=== PATIENT | male | born 1985 | race Caucasian/White ===

== ENCOUNTER 2020-09-26 13:42 | Inpatient (IN) | payer OTHER ==
[2020-09-26 17:29] VITALS: BMI 25.7
[2020-09-26] MEDS ORDERED: ACETAMINOPHEN 325 MG TABLET (FP) PO PRN ×2 (17:52)
[2020-09-26] MEDS ORDERED: methaDONE HCL 10 MG TABLET (FOR DETOX USE ONLY) PO ONE (17:52)
[2020-09-26] MEDS ORDERED: MAG HYDROX/AL HYDROX/SIMETH 30 ML UNIT-DOSE CUP PO PRN (17:52)
[2020-09-26] MEDS ORDERED: MENTHOL/PHENOL 1 EACH UD MM PRN (17:52)
[2020-09-26] MEDS ORDERED: IBUPROFEN 400 MG TABLET (FP) PO PRN (17:52)
[2020-09-26] MEDS ORDERED: MAGNESIUM CITRATE 300 ML BOTTLE PO PRN (17:52)
[2020-09-26] MEDS ORDERED: NICOTINE 10 MG CARTRIDGE (INHALER) IH PRN (17:52)
[2020-09-26] MEDS ORDERED: MAGNESIUM HYDROX 2400MG/30ML ORAL SUSPENSION 30 ML CUP PO PRN (17:52)
[2020-09-26] MEDS ORDERED: hydrOXYzine PAMOATE 25 MG CAPSULE (FP) PO PRN (17:52)
[2020-09-26] MEDS ORDERED: cloNIDine HCL 0.1 MG TABLET PO PRN (17:52)
[2020-09-26] MEDS ORDERED: ONDANSETRON *ODT* 4 MG TABLET ONE (18:17)
[2020-09-26] MEDS: ONDANSETRON *ODT* 4 MG TABLET SL PRN (18:18)
[2020-09-26] MEDS: NICOTINE 21 MG/24 HOURS TOPICAL PATCH TD SCH (19:42)
[2020-09-26] MEDS: MELATONIN 5 MG TABLETS PO SCH (22:29)
[2020-09-26] MEDS: METHOCARBAMOL 500 MG TABLET PO PRN (22:29)
[2020-09-26] MEDS: THIAMINE HCL 100 MG TABLET (FP) PO SCH (22:29)
[2020-09-27] MEDS: BISMUTH SUBSALICYLATE 524 MG/30 ML PO PRN ×2 (09:00→20:10)
[2020-09-27] MEDS: ONDANSETRON *ODT* 4 MG TABLET SL PRN ×2 (09:00→20:10)
[2020-09-27] MEDS ORDERED: methaDONE HCL 10 MG TABLET (FOR DETOX USE ONLY) ONE (09:28)
[2020-09-27] MEDS: clonazePAM 0.5 MG ODT TABLETS SL PRN ×2 (10:32→20:06)
[2020-09-27] MEDS: PRENATAL VITAMINS W/ FOLIC ACID TABLET (FP) PO SCH (10:35)
[2020-09-27] MEDS: NICOTINE 21 MG/24 HOURS TOPICAL PATCH TD SCH (10:35)
[2020-09-27 11:17] LABS: HEMATOCRIT 33.6 % (35.4-49); HEMOGLOBIN 11.1 GM/dL (11.7-16.9); MCH 28.6 pg (25.7-33.7); MCHC 32.9 g/dl (32.0-35.9); MEAN PLT VOLUME 8.8 fl (7.5-11.1); PLATELET COUNT 504 10^3/uL (134-434); RBC 3.86 M/mm3 (4.00-5.60); RDW 14.6 % (11.9-15.9); WHITE BLOOD COUNT 20.9 K/mm3 (4.0-10.0)
[2020-09-27 11:36] LABS: ALBUMIN 2.4 g/dl (3.4-5.0); BLOOD UREA NITROGEN 6.8 mg/dL (7-18)
[2020-09-27 11:37] LABS: CALCIUM 8.4 mg/dL (8.5-10.1)
[2020-09-27 11:39] LABS: CREATININE 0.6 mg/dL (0.55-1.3)
[2020-09-27 11:41] LABS: BILIRUBIN,TOTAL 1.2 mg/dL (0.2-1); TOT PROT 7.4 g/dl (6.4-8.2)
[2020-09-27] MEDS ORDERED: COVID-19 VAC,AD26(JANSSEN)/PF 0.5 ML IM ONE (12:00)
[2020-09-27] MEDS ORDERED: PNEUMOCOCCAL 23 VACCINE 0.5 ML VIAL IM ONE (12:00)
[2020-09-27 12:22] LABS: HIV INTERPRETATION NEGATIVE (NEGATIVE)
[2020-09-27] MEDS ORDERED: PNEUMOC 13-VAL CONJ-DIP CRM/PF 0.5 ML DISP.SYRIN IM ONE (18:35)
[2020-09-27] MEDS: METHOCARBAMOL 500 MG TABLET PO PRN (22:01)
[2020-09-27] MEDS: THIAMINE HCL 100 MG TABLET (FP) PO SCH (22:34)
[2020-09-27] MEDS: MELATONIN 5 MG TABLETS PO SCH (22:34)
[2020-09-28] MEDS ORDERED: POTASSIUM CHLORIDE TABS 20 MEQ TABLET.ER (FP) PO SCH (10:00)
[2020-09-28] MEDS ORDERED: methaDONE HCL 10 MG TABLET (FOR DETOX USE ONLY) PO ONE (10:00)
[2020-09-28] MEDS: NICOTINE 21 MG/24 HOURS TOPICAL PATCH TD SCH (11:03)
[2020-09-28] MEDS: PRENATAL VITAMINS W/ FOLIC ACID TABLET (FP) PO SCH (11:03)
[2020-09-28] MEDS: ONDANSETRON *ODT* 4 MG TABLET SL PRN (11:05)
[2020-09-28] MEDS: clonazePAM 0.5 MG ODT TABLETS SL PRN (13:23)
[2020-09-28 13:40] VITALS: BP 153/81; PULSE 116; TEMP 99.1
[2020-09-30] MEDS ORDERED: methaDONE HCL 10 MG TABLET (FOR DETOX USE ONLY) PO ONE (10:00)
== END 2020-09-28 23:37 | disposition short-term general hospital (02) | DRG 773 ==
LOC: YASAS 13:42 → Y6N 18:14
PROVIDERS: ADMIT Allergy & Immunology; ATTEND Allergy & Immunology
PROC: HZ2ZZZZ Detoxification Services for Substance Abuse Treatment (ICD-10-PCS; principal; 2020-09-26)
DX: F11.23 Opioid dependence with withdrawal (principal); F14.10 Cocaine abuse, uncomplicated; F17.210 Nicotine dependence, cigarettes, uncomplicated; F41.9 Anxiety disorder, unspecified; F43.10 Post-traumatic stress disorder, unspecified; D72.829 Elevated white blood cell count, unspecified; D64.9 Anemia, unspecified; E87.6 Hypokalemia; R05 Cough; Z87.01 Personal history of pneumonia (recurrent); Z87.81 Personal history of (healed) traumatic fracture; Z56.0 Unemployment, unspecified; Z59.0 Homelessness
CPT/HCPCS: 36415; 80053; 85027; 86780; 87389; 93005; 93010; C9803; J0735; Q0162; U0003; U0005

== ENCOUNTER 2020-09-28 16:03 | Inpatient (IN) | payer OTHER ==
[2020-09-28] MEDS ORDERED: SODIUM CHLORIDE 500 ML IV STA (17:16)
[2020-09-28 17:58] LABS: BASO % 0.6 % (0-2.0); EOS % 0.6 % (0-4.5); HEMATOCRIT 32.7 % (35.4-49); HEMOGLOBIN 10.6 GM/dL (11.7-16.9); LYMPH % 12.6 % (8-40); MCH 28.2 pg (25.7-33.7); MCHC 32.4 g/dl (32.0-35.9); MONO % 11.3 % (3.8-10.2); NEUT % 74.9 % (42.8-82.8); PLATELET COUNT 487 10^3/uL (134-434); RBC 3.75 M/mm3 (4.00-5.60)
[2020-09-28 18:04] LABS: INR 1.34 (0.83-1.09); PROTHROMBIN TIME (PATIENT) 16.3 SEC (9.7-13.0)
[2020-09-28 18:18] LABS: CALCIUM 8.6 mg/dL (8.5-10.1)
[2020-09-28 18:19] LABS: ALBUMIN 2.3 g/dl (3.4-5.0); BLOOD UREA NITROGEN 6.9 mg/dL (7-18); MAGNESIUM 2.5 mg/dL (1.8-2.4)
[2020-09-28 18:22] LABS: CREATININE 0.6 mg/dL (0.55-1.3)
[2020-09-28 18:23] LABS: TOT PROT 7.2 g/dl (6.4-8.2)
[2020-09-28] MEDS ORDERED: CEFTRIAXONE 1,000 MG in DEXTROSE 5%-WATER - 50 ML IVPB ONE (18:26)
[2020-09-28] MEDS ORDERED: CEFTRIAXONE 1 GM/50 ML BAG ONE (18:35)
[2020-09-28] MEDS ORDERED: AZITHROMYCIN IVPB 500 MG/250 ML BAG IVPB ONE (18:35)
[2020-09-28] MEDS: AZITHROMYCIN IVPB 500 MG/250 ML BAG IVPB SCH (19:30)
[2020-09-28] MEDS ORDERED: KETOROLAC TROMETHAMINE 15 MG/ML VIAL IVPUSH ONE (20:13)
[2020-09-28] MEDS ORDERED: FOLIC ACID INJECTION - 1 MG, THIAMINE HCL 100 MG, MULTIVIT INJECTION ADULT 10 ML in SOD... IVPB ONE (20:16)
[2020-09-28] MEDS ORDERED: KETOROLAC TROMETHAMINE 15 MG/ML VIAL ONE (20:19)
[2020-09-28] MEDS ORDERED: ONDANSETRON 4 MG/2 ML VIAL IVPUSH ONE (20:20)
[2020-09-28] MEDS ORDERED: cloNIDine HCL 0.1 MG TABLET PO PRN (21:47)
[2020-09-28] MEDS ORDERED: MELATONIN 5 MG TABLETS PO PRN (21:48)
[2020-09-28] MEDS ORDERED: clonazePAM 0.5 MG TABLET PO PRN (21:48)
[2020-09-28] MEDS ORDERED: IBUPROFEN 200 MG TABLET PO PRN (21:54)
[2020-09-29] MEDS ORDERED: KETOROLAC TROMETHAMINE 15 MG/ML VIAL IVPUSH ONE ×2 (02:15→03:48)
[2020-09-29] MEDS ORDERED: clonazePAM 0.5 MG TABLET PO ONE (03:47)
[2020-09-29 05:10] LABS: EPI CELLS >36 /uL (0-25.1); HYALINE CASTS 2 /uL (0-3.1); URINE APPEARANCE CLEAR; URINE BILIRUBIN 1+ (NEGATIVE); URINE COLOR ORANGE; URINE GLUCOSE (UA) NEGATIVE (NEGATIVE); URINE KETONE NEGATIVE (NEGATIVE); URINE LEUK ESTERASE TRACE (NEGATIVE); URINE NITRITE POSITIVE (NEGATIVE); URINE PROTEIN 1+ (NEGATIVE); URINE RBC 25 /uL (0-23.9); URINE WBC 42 /uL (0-25.8)
[2020-09-29] MEDS ORDERED: CEFTRIAXONE 1 GM in DEXTROSE 5%-WATER - 50 ML IVPB SCH (10:00)
[2020-09-29 10:33] LABS: MCHC 33.4 g/dl (32.0-35.9); MEAN PLT VOLUME 8.5 fl (7.5-11.1); PLATELET COUNT 508 10^3/uL (134-434); RDW 15.6 % (11.9-15.9); WHITE BLOOD COUNT 23.8 K/mm3 (4.0-10.0)
[2020-09-29 11:02] LABS: ALBUMIN 1.8 g/dl (3.4-5.0); BLOOD UREA NITROGEN 8.6 mg/dL (7-18); MAGNESIUM 2.2 mg/dL (1.8-2.4)
[2020-09-29 11:05] LABS: CREATININE 0.7 mg/dL (0.55-1.3); PHOSPHOROUS 1.4 mg/dL (2.5-4.9)
[2020-09-29 11:07] LABS: BILIRUBIN,TOTAL 1.6 mg/dL (0.2-1); TOT PROT 6.2 g/dl (6.4-8.2)
[2020-09-29 11:08] LABS: IRON SERUM 10 ug/dL (50-175); TOTAL IRON BINDING CAPACITY 137 ug/dL (250-450)
[2020-09-29] MEDS ORDERED: VANCOMYCIN 1 GM in D5W (PRE-DOCKED) 1,000 MG/250 ML IVPB SCH ×2 (11:30→12:30)
[2020-09-29 11:46] LABS: ANISOCYTOSIS 2+; MACROCYTOSIS 1+; PLATELET ESTIMATE INCREASED
[2020-09-29] MEDS: ENOXAPARIN NA (PORCINE) 40 MG/0.4 ML DISP.SYRIN SQ SCH (11:50)
[2020-09-29] MEDS: AZITHROMYCIN IVPB 500 MG/250 ML BAG IVPB SCH (11:51)
[2020-09-29] MEDS: FOLIC ACID 1 MG TABLET (FP) PO SCH (11:51)
[2020-09-29] MEDS: THIAMINE HCL 100 MG TABLET (FP) PO SCH ×2 (11:51→21:57)
[2020-09-29] MEDS ORDERED: cloNIDine HCL 0.1 MG TABLET PO PRN (12:20)
[2020-09-29] MEDS ORDERED: methaDONE HCL 10 MG TABLET ONE (12:51)
[2020-09-29] MEDS: LACTATED RINGERS SOLUTION 1,000 ML/1,000 ML INFUS.BAG IV SCH (13:00)
[2020-09-29] MEDS ORDERED: SODIUM CHLORIDE 500 ML IV ONE (14:30)
[2020-09-29] MEDS ORDERED: PIPERACILLIN/TAZOBACTAM 4.5 GM VIAL IVPB ONE (17:27)
[2020-09-29] MEDS ORDERED: DEXTROSE 5%-WATER 100 ML IVPB ONE (17:27)
[2020-09-29] MEDS: PIPERACILLIN/TAZOB 4.5 GM 4.5 GM in DEXTROSE 5%-WATER 100 ML IVPB SCH (17:35)
[2020-09-29] MEDS: clonazePAM 0.5 MG TABLET PO PRN ×2 (17:35→22:39)
[2020-09-29] MEDS ORDERED: PIPERACILLIN/TAZOB 4.5 GM 4.5 GM in DEXTROSE 5%-WATER 100 ML IVPB SCH (18:00)
[2020-09-29] MEDS ORDERED: SODIUM PHOSPHATE - 45 MM in SODIUM CHLORIDE 500 ML IVPB ONE (18:24)
[2020-09-29] MEDS: morphine SULFATE 4 MG/ML VIAL IVPUSH PRN ×2 (18:27→21:44)
[2020-09-29] MEDS: ACETAMINOPHEN 1000 MG/100 ML VIAL (NON FORMULARY) IVPB PRN (22:46)
[2020-09-30] MEDS ORDERED: PIPERACILLIN/TAZOBACTAM 4.5 GM VIAL IVPB ONE ×3 (01:13→17:29)
[2020-09-30] MEDS ORDERED: DEXTROSE 5%-WATER 100 ML IVPB ONE ×3 (01:13→17:29)
[2020-09-30] MEDS: PIPERACILLIN/TAZOB 4.5 GM 4.5 GM in DEXTROSE 5%-WATER 100 ML IVPB SCH ×3 (01:15→17:44)
[2020-09-30] MEDS: morphine SULFATE 4 MG/ML VIAL IVPUSH PRN ×5 (01:19→19:59)
[2020-09-30] MEDS: clonazePAM 0.5 MG TABLET PO PRN ×3 (04:58→21:48)
[2020-09-30] MEDS ORDERED: methaDONE HCL 10 MG TABLET PO ONE (06:00)
[2020-09-30] MEDS: FOLIC ACID 1 MG TABLET (FP) PO SCH (10:24)
[2020-09-30] MEDS: THIAMINE HCL 100 MG TABLET (FP) PO SCH ×2 (10:24→23:01)
[2020-09-30] MEDS: ENOXAPARIN NA (PORCINE) 40 MG/0.4 ML DISP.SYRIN SQ SCH (10:26)
[2020-09-30 10:29] LABS: HEMATOCRIT 28.2 % (35.4-49); HEMOGLOBIN 9.3 GM/dL (11.7-16.9); MCH 28.6 pg (25.7-33.7); MCHC 32.9 g/dl (32.0-35.9); MEAN CELL VOLUME 86.9 fl (80-96); MEAN PLT VOLUME 8.5 fl (7.5-11.1); PLATELET COUNT 412 10^3/uL (134-434); RBC 3.24 M/mm3 (4.00-5.60); RDW 15.6 % (11.9-15.9); WHITE BLOOD COUNT 21.3 K/mm3 (4.0-10.0)
[2020-09-30 10:58] LABS: MAGNESIUM 2.1 mg/dL (1.8-2.4)
[2020-09-30 10:59] LABS: ALBUMIN 1.8 g/dl (3.4-5.0); BLOOD UREA NITROGEN 9.3 mg/dL (7-18); CALCIUM 7.9 mg/dL (8.5-10.1)
[2020-09-30 11:02] LABS: BILIRUBIN,DIRECT 1.4 mg/dL (0.0-0.2); CREATININE 0.5 mg/dL (0.55-1.3); PHOSPHOROUS 5.3 mg/dL (2.5-4.9)
[2020-09-30 11:03] LABS: TOT PROT 6.2 g/dl (6.4-8.2)
[2020-09-30 11:04] LABS: BILIRUBIN,TOTAL 2.1 mg/dL (0.2-1)
[2020-09-30 11:12] LABS: ERYTHROCYTE SEDIMENTATION RATE 111 mm/hr (0-10)
[2020-09-30] MEDS ORDERED: ALTEPLASE 2 MG VIAL IX ONE (12:00)
[2020-09-30 13:25] VITALS: BMI 24.9
[2020-09-30] MEDS ORDERED: HYDROmorphone HCl 2 MG/ML VIAL IVPB ONE (13:25)
[2020-09-30] MEDS: VANCOMYCIN 1 GRAM (PRE-DOCKED) 1,000 MG/250 ML BAG IVPB SCH (14:02)
[2020-09-30] MEDS: LACTATED RINGERS SOLUTION 1,000 ML/1,000 ML INFUS.BAG IV SCH (15:08)
[2020-09-30] MEDS: AMINO ACIDS/PROTEIN HYDROLYS 30 ML LIQUID.PKT PO SCH (16:45)
[2020-09-30] MEDS: ACETAMINOPHEN 1000 MG/100 ML VIAL (NON FORMULARY) IVPB PRN (21:50)
[2020-10-01] MEDS: VANCOMYCIN 1 GRAM (PRE-DOCKED) 1,000 MG/250 ML BAG IVPB SCH ×2 (01:32→01:44)
[2020-10-01] MEDS: PIPERACILLIN/TAZOB 4.5 GM 4.5 GM in DEXTROSE 5%-WATER 100 ML IVPB SCH ×3 (01:45→19:07)
[2020-10-01] MEDS: clonazePAM 0.5 MG TABLET PO PRN ×2 (05:49→18:37)
[2020-10-01] MEDS: morphine SULFATE 4 MG/ML VIAL IVPUSH PRN ×2 (07:12→12:24)
[2020-10-01 09:23] LABS: BASO % 0.3 % (0-2.0); EOS % 0.3 % (0-4.5); HEMATOCRIT 27.1 % (35.4-49); HEMOGLOBIN 8.8 GM/dL (11.7-16.9); LYMPH % 9.2 % (8-40); MCH 28.2 pg (25.7-33.7); MCHC 32.5 g/dl (32.0-35.9); MEAN CELL VOLUME 86.7 fl (80-96); MEAN PLT VOLUME 8.6 fl (7.5-11.1); MONO % 13.2 % (3.8-10.2); PLATELET COUNT 396 10^3/uL (134-434); RBC 3.12 M/mm3 (4.00-5.60); RDW 15.8 % (11.9-15.9); WHITE BLOOD COUNT 16.8 K/mm3 (4.0-10.0)
[2020-10-01 09:49] LABS: ALBUMIN 1.7 g/dl (3.4-5.0); BLOOD UREA NITROGEN 6.8 mg/dL (7-18); CALCIUM 7.7 mg/dL (8.5-10.1)
[2020-10-01 09:52] LABS: CREATININE 0.6 mg/dL (0.55-1.3)
[2020-10-01 09:53] LABS: BILIRUBIN,TOTAL 1.7 mg/dL (0.2-1); TOT PROT 6.2 g/dl (6.4-8.2)
[2020-10-01 10:15] LABS: ANISOCYTOSIS 0; MACROCYTOSIS 0; PLATELET ESTIMATE NORMAL
[2020-10-01] MEDS ORDERED: DEXTROSE 5%-WATER 100 ML IVPB ONE ×2 (11:52→17:22)
[2020-10-01] MEDS ORDERED: PIPERACILLIN/TAZOBACTAM 4.5 GM VIAL IVPB ONE ×2 (11:52→17:21)
[2020-10-01] MEDS: LACTATED RINGERS SOLUTION 1,000 ML/1,000 ML INFUS.BAG IV SCH ×2 (12:20→21:43)
[2020-10-01] MEDS: THIAMINE HCL 100 MG TABLET (FP) PO SCH ×2 (12:23→22:26)
[2020-10-01] MEDS: AMINO ACIDS/PROTEIN HYDROLYS 30 ML LIQUID.PKT PO SCH ×2 (12:23→18:28)
[2020-10-01] MEDS: ENOXAPARIN NA (PORCINE) 40 MG/0.4 ML DISP.SYRIN SQ SCH (12:24)
[2020-10-01] MEDS: MULTIVITAMINS (DAILY MVI) TABLET (FP) PO SCH (12:24)
[2020-10-01] MEDS: FOLIC ACID 1 MG TABLET (FP) PO SCH (12:24)
[2020-10-01 12:44] LABS: HIV INTERPRETATION NEGATIVE (NEGATIVE)
[2020-10-01] MEDS ORDERED: ALTEPLASE 2 MG VIAL IX ONE (14:04)
[2020-10-01] MEDS ORDERED: oxyCODONE HCL 5 MG TABLET PO PRN (17:05)
[2020-10-01] MEDS: HYDROmorphone HCl 2 MG/ML VIAL IVPB PRN ×2 (18:26→22:22)
[2020-10-01] MEDS ORDERED: ACETAMINOPHEN 1000 MG/100 ML VIAL (NON FORMULARY) IVPB PRN (20:52)
[2020-10-02] MEDS: clonazePAM 0.5 MG TABLET PO PRN ×2 (00:28→06:27)
[2020-10-02] MEDS ORDERED: PIPERACILLIN/TAZOBACTAM 4.5 GM VIAL IVPB ONE ×3 (01:18→18:01)
[2020-10-02] MEDS ORDERED: DEXTROSE 5%-WATER 100 ML IVPB ONE ×3 (01:18→18:02)
[2020-10-02] MEDS: PIPERACILLIN/TAZOB 4.5 GM 4.5 GM in DEXTROSE 5%-WATER 100 ML IVPB SCH ×3 (01:32→18:35)
[2020-10-02] MEDS: HYDROmorphone HCl 2 MG/ML VIAL IVPB PRN ×5 (02:28→23:56)
[2020-10-02] MEDS ORDERED: HYDROmorphone HCL 2 MG TABLET PO ONE ×2 (05:07→14:58)
[2020-10-02] MEDS ORDERED: ACETAMINOPHEN 1000 MG/100 ML VIAL (NON FORMULARY) IVPB PRN (05:15)
[2020-10-02] MEDS: LACTATED RINGERS SOLUTION 1,000 ML/1,000 ML INFUS.BAG IV SCH ×2 (06:27→14:47)
[2020-10-02] MEDS: AMINO ACIDS/PROTEIN HYDROLYS 30 ML LIQUID.PKT PO SCH ×2 (10:20→18:35)
[2020-10-02] MEDS: THIAMINE HCL 100 MG TABLET (FP) PO SCH ×2 (10:20→21:06)
[2020-10-02] MEDS: FOLIC ACID 1 MG TABLET (FP) PO SCH (10:20)
[2020-10-02] MEDS: MULTIVITAMINS (DAILY MVI) TABLET (FP) PO SCH (10:20)
[2020-10-02] MEDS: ENOXAPARIN NA (PORCINE) 40 MG/0.4 ML DISP.SYRIN SQ SCH (10:20)
[2020-10-02 14:16] LABS: BODY FLUID ALBUMIN 0.8 g/dL (Not Estab.)
[2020-10-02 21:01] VITALS: BP 119/70; PULSE 94; TEMP 98.6
[2020-10-02] MEDS ORDERED: clonazePAM 0.5 MG TABLET PO ONE (23:15)
[2020-10-03] MEDS ORDERED: DEXTROSE 5%-WATER 100 ML IVPB ONE (01:26)
[2020-10-03] MEDS ORDERED: PIPERACILLIN/TAZOBACTAM 4.5 GM VIAL IVPB ONE (01:26)
[2020-10-03] MEDS: LACTATED RINGERS SOLUTION 1,000 ML/1,000 ML INFUS.BAG IV SCH (01:35)
[2020-10-03] MEDS: PIPERACILLIN/TAZOB 4.5 GM 4.5 GM in DEXTROSE 5%-WATER 100 ML IVPB SCH (01:35)
[2020-10-03] MEDS: HYDROmorphone HCl 2 MG/ML VIAL IVPB PRN (04:37)
== END 2020-10-03 13:21 | disposition left against medical advice (07) | DRG 720 ==
LOC: JER 16:03 → JERBED 19:15 → J5S 20:39 → J6S 10-02 19:17
PROVIDERS: ADMIT Internal Medicine; ATTEND Internal Medicine
PROC: 0W9930Z Drainage of Right Pleural Cavity with Drainage Device, Percutaneous Approach (ICD-10-PCS; principal; 2020-09-30)
PROC: 3E0L3GC Introduction of Other Therapeutic Substance into Pleural Cavity, Percutaneous Approach (ICD-10-PCS; 2020-09-30)
DX: A41.89 Other specified sepsis (principal); I10 Essential (primary) hypertension; F43.10 Post-traumatic stress disorder, unspecified; J86.9 Pyothorax without fistula; J18.9 Pneumonia, unspecified organism; J90 Pleural effusion, not elsewhere classified; F17.210 Nicotine dependence, cigarettes, uncomplicated; R45.1 Restlessness and agitation; J98.11 Atelectasis; R19.7 Diarrhea, unspecified; D47.3 Essential (hemorrhagic) thrombocythemia; F11.23 Opioid dependence with withdrawal; E88.09 Other disorders of plasma-protein metabolism, not elsewhere classified; Z59.0 Homelessness; F19.10 Other psychoactive substance abuse, uncomplicated; R74.01 Elevation of levels of liver transaminase levels; Z96.652 Presence of left artificial knee joint; E43 Unspecified severe protein-calorie malnutrition; Z68.25 Body mass index [BMI] 25.0-25.9, adult
CPT/HCPCS: 32557; 36415; 71045-TC-FY; 71046-TC-FY; 71250-TC; 80048; 80053; 80076; 81003; 82042; 82150; 82945; 83540; 83550; 83615; 83690; 83735; 83986; 84100; 84157; 84478; 84484; 85025; 85045; 85610; 85651; 86140; 86704; 86705; 86706; 86708; 86709; 86803; 87040; 87070; 87075; 87077; 87116; 87205; 87206; 87389; 87517; 93005; 93010; 99285-25; C1729; C9803; J0131; J0735; J2997; U0003; U0005